=== PATIENT | female | born 1990 | race Caucasian/White ===

== ENCOUNTER 2021-09-07 22:49 | Emergency (ER) | payer OTHER, BC | END 2021-09-07 23:54 | disposition home or self-care (01) | LOC: JP.ED 22:49 | DX: S50.01XA Contusion of right elbow, initial encounter (principal); S70.01XA Contusion of right hip, initial encounter; V86.99XA Unspecified occupant of other special all-terrain or other off-road motor vehicle injured in nontraffic accident, initial encounter; Y92.410 Unspecified street and highway as the place of occurrence of the external cause | CPT/HCPCS: 73080-26-RT; 73080-RT; 73502-26-RT; 73502-RT; 99282; 99284 ==